=== PATIENT | male | born 1960 | race African-American/Black ===

== ENCOUNTER 2016-12-22 10:57 | Emergency (ER) | payer MEDICARE, MEDICAID ==
[2016-12-22] MEDS ORDERED: NORMAL SALINE 1000 ML 1,000 ML IV ONE (11:10)
[2016-12-22] MEDS ORDERED: ONDANSETRON HCL INJ/PF 4 MG/2 ML SDV IV ONE (11:11)
[2016-12-22] MEDS ORDERED: KETOROLAC TROMETHAMINE INJ/PF 30 MG/1 ML SDV IV ONE (11:11)
--- NOTE | 2016-12-22 11:12 | ER Document Report ---
ED Medical Screen (RME) - General Chief Complaint: Abdominal Cramping Stated Complaint: STOMACH PAIN Time Seen by Provider: 12/22/16 11:10 Mode of Arrival: Wheelchair TRAVEL OUTSIDE OF THE [place] IN LAST 30 DAYS: No - HPI Patient complains to provider of: abdominal pain Onset: Other - pt with c/o abdominal pain for the past 1-2 days with exacerbation this am - Related Data Allergies/Adverse Reactions: No Known Allergies Allergy (Verified 12/22/16 10:59) Past Medical History - Social History Chew tobacco use (# tins/day): No Frequency of alcohol use: None Drug Abuse: Marijuana - Past Medical History Cardiac Medical History: Reports: Hx Hypertension Pulmonary Medical History: Reports: Hx Bronchitis, Hx COPD, Hx Pneumonia Renal/ Medical History: Denies: Hx Peritoneal Dialysis Musculoskeltal Medical History: Reports Hx Arthritis - positive rheumatoid factor Psychiatric Medical History: Reports: Hx Schizophrenia Past Surgical History: Reports: Hx Appendectomy, Hx Bowel Surgery - Gastric Cysts - Immunizations Hx Diphtheria, Pertussis, Tetanus Vaccination: Yes Physical Exam - Vital signs Vitals: Temp Pulse Resp BP Pulse Ox 97.7 F 67 22 H 121/88 H 94 12/22/16 11:01 12/22/16 11:01 12/22/16 11:01 12/22/16 11:01 12/22/16 11:01 Course - Vital Signs Vital signs: Temp Pulse Resp BP Pulse Ox 97.7 F 67 22 H 121/88 H 94 12/22/16 11:01 12/22/16 11:01 12/22/16 11:01 12/22/16 11:01 12/22/16 11:01
[2016-12-22 11:53] LABS: ABSOLUTE BASOPHILS # (AUTO) 0.1 10^3/uL (0.0-0.2); ABSOLUTE EOSINOPHILS # (AUTO) 0.1 10^3/uL (0.0-0.6); ABSOLUTE LYMPHOCYTES (AUTO) 4.9 10^3/uL (0.5-4.7); ABSOLUTE MONOCYTES (AUTO) 0.7 10^3/uL (0.1-1.4); ABSOLUTE NEUT (AUTO) 7.3 10^3/uL (1.7-8.2); BASOPHILS % (AUTO) 0.7 % (0-2); EOSINOPHILS % (AUTO) 0.9 % (0-6); HEMATOCRIT 38.7 % (37.9-51.0); HEMOGLOBIN 12.7 g/dL (13.5-17.0); HGB HCT DIFFERENCE -0.6; LYMPHOCYTES % (AUTO) 37.6 % (13-45); MEAN CORPUSCULAR HEMOGLOBIN 31.7 pg (27.0-33.4); MEAN CORPUSCULAR HGB CONC 32.9 g/dL (32.0-36.0); MEAN CORPUSCULAR VOLUME 96 fl (80-97); MONOCYTES % (AUTO) 5.4 % (3-13); RED BLOOD COUNT 4.02 10^6/uL (4.35-5.55); RED CELL DISTRIBUTION WIDTH 17.6 % (11.5-14.0); SEGMENTED NEUTROPHILS % (AUTO) 55.4 % (42-78); WHITE BLOOD COUNT 13.1 10^3/uL (4.0-10.5)
[2016-12-22 12:25] LABS: ALANINE AMINOTRANSFERASE 13 U/L (21-72); ALBUMIN 3.9 g/dL (3.5-5.0); ALKALINE PHOSPHATASE 84 U/L (38-126); ANION GAP 11 (5-19); ASPARTATE AMINO TRANSFERASE 22 U/L (17-59); BILIRUBIN,DIRECT 0.4 mg/dL (0.0-0.4); BILIRUBIN,TOTAL 0.8 mg/dL (0.2-1.3); BLOOD UREA NITROGEN 17 mg/dL (7-20); CALCIUM 9.5 mg/dL (8.4-10.2); CARBON DIOXIDE 28 mmol/L (22-30); CHLORIDE 101 mmol/L (98-107); CREATININE RESULT 0.81 mg/dL (0.52-1.25); GLUCOSE 87 mg/dL (75-110); LIPASE 371.3 U/L (23-300); SODIUM 139.9 mmol/L (137-145); TOTAL PROTEIN 6.7 g/dL (6.3-8.2)
--- NOTE | 2016-12-22 13:03 | RADIOLOGY REPORT (SQ) ---
EXAM DESCRIPTION: CT ABD/PELVIS WITH IV ONLY COMPLETED DATE/TIME: 12/22/2016 12:46 pm REASON FOR STUDY: abd pain COMPARISON: None. TECHNIQUE: CT scan of the abdomen and pelvis performed using helical scanning technique with dynamic intravenous contrast injection. No oral contrast. Images reviewed with lung, soft tissue, and bone windows. Reconstructed coronal and sagittal MPR images reviewed. Delayed images for evaluation of the urinary system also acquired. All images stored on PACS. All CT scanners at this facility use dose modulation, iterative reconstruction, and/or weight based d osing when appropriate to reduce radiation dose to as low as reasonably achievable (ALARA). [facility]: Dose Right [facility]: CareDose [facility]: Dose Right [facility]: Teradose 4D [facility]: [employer] CONTRAST TYPE AND DOSE: contrast/concentration: Isovue 370.00 mg/ml; Total Contrast Delivered: 100.0 ml; Total Saline Delivered: 72.0 ml RENAL FUNCTION: Creatinine 0.81 RADIATION DOSE: Up-to-date CT equipment and radiation dose reduction techniques were employed. CTDIv ol: 13.8 - 18.8 mGy. DLP: 1589 mGy-cm.. LIMITATIONS: None. FINDINGS: LOWER CHEST: No significant findings. No nodules or infiltrates. LIVER: Normal size. No masses. No dilated ducts. SPLEEN: Normal size. No focal lesions. PANCREAS: Mild fat stranding along the tail of the pancreas. Pancreas otherwise looks normal. No dr ainable collections. Adjacent bowel unremarkable. GALLBLADDER: No identified stones by CT criteria. No inflammatory changes to suggest cholecystitis. ADRENAL GLANDS: No significant masses or asymmetry. RIGHT KIDNEY AND URETER: No solid masses. No significant calcification. No hydronephrosis or hydroure ter. LEFT KIDNEY AND URETER: No solid masses. No significant calcification. No hydronephrosis or hydrouret er. AORTA AND VESSELS: No aneurysm. No dissection. Renal arteries, SMA, celiac without stenosis. RETROPERITONEUM: No retroperitoneal adenopathy, hemorrhage or masses. BOWEL AND PERITONEAL CAVITY: No masses or inflammatory changes. No free fluid or peritoneal masses. APPENDIX: Surgically absent. PELVIS: No mass. No free fluid. Normal bladder. ABDOMINAL WALL: No masses. No hernias. BONES: No significant or acute findings. OTHER: No other significant finding. IMPRESSION: 1. Suspect mild pancreatitis without pseudocyst. Please correlate with lipase and amyla se values. 2. Otherwise unremarkable CT of the abdomen and pelvis. TECHNICAL DOCUMENTATION: JOB ID: [id number] Quality ID # [id number]: Final reports with documentation of one or more dose reduction techniques (e.g., Au tomated exposure control, adjustment of the mA and/or kV according to patient size, use of iterative reconstruction technique) 2010 [employer]- All Rights Reserved
[2016-12-22 13:06] LABS: APPEARANCE,URINE CLEAR; BILIRUBIN,URINE NEGATIVE (NEGATIVE); GLUCOSE, URINE NEGATIVE (NEGATIVE); KETONES,URINE NEGATIVE (NEGATIVE); LEUKOCYTE ESTERASE,URINE NEGATIVE (NEGATIVE); NITRITE,URINE NEGATIVE (NEGATIVE); PROTEIN,URINE NEGATIVE (NEGATIVE); URINE SPECIFIC GRAVITY 1.017; UROBILINOGEN,URINE NEGATIVE mg/dL (<2.0)
[2016-12-22] MEDS ORDERED: DICYCLOMINE HCL 20 MG TABLET PO ONE (13:25)
--- NOTE | 2016-12-22 13:40 | ER Document Report ---
ED General - General Chief Complaint: Abdominal Cramping Stated Complaint: STOMACH PAIN Time Seen by Provider: 12/22/16 11:10 Mode of Arrival: Wheelchair TRAVEL OUTSIDE OF THE [place] IN LAST 30 DAYS: No - HPI Patient complains to provider of: Abdominal cramping Notes: Patient coming in for abdominal cramping states ongoing for the last few days worse today. Patient states more right-sided. Patient denies any fevers chills nausea vomiting. Patient states had a hard bowel movement this morning. Denies any abdominal trauma denies any recent antibiotics. Patient states approximate 2 days ago tried to drink alcohol however he was not able to tolerate it and did become nauseous. Patient denies any other medical problems except for rheumatoid arthritis and hypertension. States compliance with his medications - Related Data Allergies/Adverse Reactions: No Known Allergies Allergy (Verified 12/22/16 10:59) Past Medical History - Social History Smoking Status: Current Every Day Smoker Chew tobacco use (# tins/day): No Frequency of alcohol use: None Drug Abuse: Marijuana Family History: Reviewed & Not Pertinent - Past Medical History Cardiac Medical History: Reports: Hx Hypertension Pulmonary Medical History: Reports: Hx Bronchitis, Hx COPD, Hx Pneumonia Renal/ Medical History: Denies: Hx Peritoneal Dialysis Musculoskeltal Medical History: Reports Hx Arthritis - positive rheumatoid factor Psychiatric Medical History: Reports: Hx Schizophrenia Past Surgical History: Reports: Hx Appendectomy, Hx Bowel Surgery - Gastric Cysts - Immunizations Hx Diphtheria, Pertussis, Tetanus Vaccination: Yes Review of Systems - Review of Systems Constitutional: No symptoms reported EENT: No symptoms reported Cardiovascular: No symptoms reported Respiratory: No symptoms reported Gastrointestinal: Abdominal pain Genitourinary: No symptoms reported Male Genitourinary: No symptoms reported Musculoskeletal: No symptoms reported Skin: No symptoms reported Hematologic/Lymphatic: No symptoms reported Neurological/Psychological: No symptoms reported -: Yes All other systems reviewed and negative Physical Exam - Vital signs Vitals: Temp Pulse Resp BP Pulse Ox 97.7 F 67 22 H 121/88 H 94 12/22/16 11:01 12/22/16 11:01 12/22/16 11:01 12/22/16 11:01 12/22/16 11:01 Interpretation: Normal - General General appearance: Appears well, Alert - HEENT Head: Normocephalic, Atraumatic Eyes: Normal Pupils: PERRL - Respiratory Respiratory status: No respiratory distress Chest status: Nontender Breath sounds: Normal Chest palpation: Normal - Cardiovascular Rhythm: Regular Heart sounds: Normal auscultation Murmur: No - Abdominal Inspection: Normal Distension: No distension Bowel sounds: Normal Tenderness: Nontender Organomegaly: No organomegaly - Back Back: Normal, Nontender - Extremities General upper extremity: Normal inspection, Nontender, Normal color, Normal ROM , Normal temperature General lower extremity: Normal inspection, Nontender, Normal color, Normal ROM , Normal temperature, Normal weight bearing. No: Eileen's sign - Neurological Neuro grossly intact: Yes Cognition: Normal Orientation: AAOx4 Kaela Coma Scale Eye Opening: Spontaneous Kaela Coma Scale Verbal: Oriented Kaela Coma Scale Motor: Obeys Commands [place] Coma Scale Total: 15 Speech: Normal Motor strength normal: LUE, RUE, LLE, RLE Sensory: Normal - Psychological Associated symptoms: Normal affect, Normal mood - Skin Skin Temperature: Warm Skin Moisture: Dry Skin Color: Normal Course - Re-evaluation Re-evalutation: 12/22/16 15:23 CT scan ordered upfront showed mild inflammation of the pancreas slightly elevated pancreatic enzymes however patient is able tolerate oral. Patient has no epigastric tenderness. Patient's abdominal exam is otherwise benign patient although patient is complaining of right sided pain. No nausea vomiting patient able tolerate p.o. here. More likely patient on CT scan by my review has slight stool retention explained to patient that he will need to abstain from any alcohol use drink plenty of fluids explained dietary restrictions to the patient. States an understanding patient will be discharged home The patient presents with abdominal pain without signs of peritonitis or other life- threatening or serious etiology. Cayden criteria 0 excluding LDH which was not performed the patient appears stable for discharge and has been instructed to return immediately if the symptoms worsen in any way, or in 8-12hr if not improved for re-evaluation. The patient has been instructed to return if the symptoms worsen or change in any way. - Vital Signs Vital signs: Temp Pulse Resp BP Pulse Ox 98.0 F 70 20 120/80 100 12/22/16 14:04 12/22/16 14:04 12/22/16 14:04 12/22/16 14:04 12/22/16 14:04 - Laboratory Result Diagrams: 12/22/16 11:15 12/22/16 11:50 Laboratory results interpreted by me: 12/22/16 12/22/16 11:15 11:50 WBC 13.1 H RBC 4.02 L Hgb 12.7 L RDW 17.6 H Absolute Lymphocytes 4.9 H ALT 13 L Lipase 371.3 H Discharge - Discharge Clinical Impression: Abdominal cramping in right flank, Elevated lipase Condition: Good Disposition: HOME, SELF-CARE Instructions: Abdominal Pain ([facility]), Constipation ([facility]), Pancreatitis ([facility]) Additional Instructions: Your CAT scan today shows some stool retention in the right side of the abdomen we are having a crampy pain. Laboratory studies show a very slight elevation in your lipase. This may be the beginning of some inflammation of your pancreas however at this time you are able to tolerate orals therefore we can let to go home. Take medication as prescribed for pain. Return to ER symptoms worsen. Follow-up with your primary care physician. Prescriptions: Dicyclomine HCl [Bentyl 20 mg Tablet] 20 mg PO QID #40 tablet Omeprazole 20 mg PO DAILY #30 capsule.dr Forms: Return to Work
[2016-12-22 14:05] VITALS: BP 120/80
== END 2016-12-22 14:05 | disposition home or self-care (01) ==
LOC: ER 10:57
DX: R10.9 Unspecified abdominal pain (principal); R74.8 Abnormal levels of other serum enzymes; F17.200 Nicotine dependence, unspecified, uncomplicated; I10 Essential (primary) hypertension; J44.9 Chronic obstructive pulmonary disease, unspecified
CPT/HCPCS: 99284; 96374; 96375; 36415; 83690; 85025; 80053; 81001; 74177; A9270; J1885; J2405; J7030; J3490

== ENCOUNTER 2016-12-29 20:56 | Emergency (ER) | payer MEDICARE, MEDICAID ==
[2016-12-29 21:23] VITALS: BP 111/76
--- NOTE | 2016-12-29 22:05 | ER Document Report ---
HPI - HPI Patient complains to provider of: left arm pain Onset: Last week Quality of pain: Achy Pain Level: 5 Context: 56 yo male c/o soreness to left antecubital space where there is brusing from blood draw. No lump. Associated Symptoms: None Exacerbated by: Movement Relieved by: Denies - ROS ROS below otherwise negative: Yes Systems Reviewed and Negative: Yes All other systems reviewed and negative Past Medical History - General Information source: Patient - Social History Smoking Status: Current Every Day Smoker Frequency of alcohol use: None Drug Abuse: None Lives with: Spouse/Significant other Family History: Reviewed & Not Pertinent - Past Medical History Cardiac Medical History: Reports: Hx Hypertension Pulmonary Medical History: Reports: Hx Bronchitis, Hx COPD, Hx Pneumonia Renal/ Medical History: Denies: Hx Peritoneal Dialysis Musculoskeltal Medical History: Reports Hx Arthritis - positive rheumatoid factor Psychiatric Medical History: Reports: Hx Schizophrenia Past Surgical History: Reports: Hx Appendectomy, Hx Bowel Surgery - Gastric Cysts - Immunizations Hx Diphtheria, Pertussis, Tetanus Vaccination: Yes Vertical Provider Document - CONSTITUTIONAL Agree With Documented VS: Yes Exam Limitations: No Limitations General Appearance: No Apparent Distress - INFECTION CONTROL TRAVEL OUTSIDE OF THE [place] IN LAST 30 DAYS: No - HEENT HEENT: Normocephalic - NECK Neck: Supple - RESPIRATORY Respiratory: Breath Sounds Normal, No Respiratory Distress O2 Sat by Pulse Oximetry: 98 - CARDIOVASCULAR Cardiovascular: Regular Rate, Regular Rhythm - MUSCULOSKELETAL/EXTREMETIES Musculoskeletal/Extremeties: MAEW, FROM, Non-Tender, Eccymosis - superficial purple bruise 2 cm left antecubital space - NEURO Level of Consciousness: Awake, Alert, Appropriate - DERM Integumentary: Warm, Dry Course - Vital Signs Vital signs: Temp Pulse Resp BP Pulse Ox 98.2 F 77 20 111/76 98 12/29/16 21:03 12/29/16 21:03 12/29/16 21:03 12/29/16 21:03 12/29/16 21:03 Discharge - Discharge Clinical Impression: left antecubital ecchymosis from IV Condition: Good Disposition: HOME, SELF-CARE Instructions: Acetaminophen, Warm Packs ([facility]) Additional Instructions: the bruise will take a week to go away see your doctor for follow up to er if any concerns
== END 2016-12-29 22:04 | disposition home or self-care (01) ==
LOC: ER 20:56
DX: S60.222A Contusion of left hand, initial encounter (principal); Y84.7 Blood-sampling as the cause of abnormal reaction of the patient, or of later complication, without mention of misadventure at the time of the procedure; F17.200 Nicotine dependence, unspecified, uncomplicated; I10 Essential (primary) hypertension; J44.9 Chronic obstructive pulmonary disease, unspecified
CPT/HCPCS: 99283